=== PATIENT | female | born 1960 | race Two or more races ===

== ENCOUNTER 2017-11-27 11:37 | Emergency (ER) | payer OTHER ==
[~2017-11-27] VITALS: Ht 162.6 cm; Wt 53.1 kg
[~2017-11-27 11:37] MED LIST: FIORICET 50-301 EACH PO; GILPHEX TR TAB1 EACH PO
== END 2017-11-27 13:36 | disposition home or self-care (01) ==
LOC: ER 11:37
DX: M94.0 Chondrocostal junction syndrome [Tietze] (principal); J06.9 Acute upper respiratory infection, unspecified

== ENCOUNTER → 2018-08-31 | Outpatient (CLI) | payer OTHER | END | disposition home or self-care (01) | LOC: NUCLEAR 13:00 | DX: M85.80 Other specified disorders of bone density and structure, unspecified site (principal); M81.0 Age-related osteoporosis without current pathological fracture ==

== ENCOUNTER 2019-08-01 08:05 | Emergency (ER) | payer OTHER ==
[~2019-08-01] VITALS: Ht 160 cm; Wt 53.5 kg
== END 2019-08-01 09:02 | disposition home or self-care (01) ==
LOC: ER 08:05 → EMR PED 08:07 → ER 08:07
DX: M54.89 Other dorsalgia (principal)

== ENCOUNTER 2024-01-04 14:35 | Emergency (ER) | payer OTHER ==
[~2024-01-04] VITALS: Ht 162.6 cm; Wt 54.4 kg
[2024-01-04] MEDS ORDERED: DEXAMETHASONE SODIUM PHOSPHATE 4 MG/ML VIAL IM STA (16:19)
[2024-01-04] MEDS ORDERED: KETOROLAC TROMETHAMINE 30 MG VIAL IM STA (19:30)
[2024-01-04] MEDS ORDERED: ORPHENADRINE CITRATE 30 MG/ML AMPUL IM STA (19:30)
[2024-01-04] MEDS ORDERED: DICLOFENAC POTA50 MG PO (19:47)
[2024-01-04] MEDS ORDERED: ZANAFLEX4 M1 PO (19:47)
== END 2024-01-04 20:09 | disposition home or self-care (01) ==
LOC: ER 14:36
DX: G44.209 Tension-type headache, unspecified, not intractable (principal)

== ENCOUNTER → 2025-02-15 11:18 | Outpatient (CLI) | payer OTHER ==
[~2025-02-15 11:18] MED LIST changes: +DICLOFENAC POTA50 MG PO; +ZANAFLEX4 M1 PO
== END | disposition home or self-care (01) ==
LOC: NUCLEAR 01-10 11:30
PROVIDERS: ATTEND Obstetrics & Gynecology
DX: E55.9 Vitamin D deficiency, unspecified (principal); M81.0 Age-related osteoporosis without current pathological fracture